=== PATIENT | male | born 1980 | race Caucasian/White ===

== ENCOUNTER 2016-11-09 22:01 | Emergency (ER) | payer BC ==
[2016-11-09] MEDS ORDERED: IBUPROFEN 200200 MG PO (22:12)
[2016-11-10] MEDS ORDERED: FLAGYL500 M1 PO (01:03)
[2016-11-10] MEDS ORDERED: BENTYL 10MG10 MG/CAP PO (01:03)
[2016-11-10 01:18] VITALS: BP 132/84
== END 2016-11-10 01:18 | disposition home or self-care (01) ==
LOC: ED 22:01
DX: R10.32 Left lower quadrant pain (principal); R10.31 Right lower quadrant pain; R19.7 Diarrhea, unspecified; R11.0 Nausea
CPT/HCPCS: J2270; J2405; J7030; Q9967